=== PATIENT | female | born 1995 | race African-American/Black ===

== ENCOUNTER 2021-02-10 03:30 | Inpatient (IN) | payer OTHER ==
[2021-02-10] MEDS ORDERED: DEXTROSE 5%-LACTATED RINGERS 1,000 ML IV SCH (05:00)
[2021-02-10 05:39] VITALS: BMI 37.5
[2021-02-10 05:54] LABS: BASO % 0.9 % (0-2.0); EOS % 0.7 % (0-4.5); HEMATOCRIT 32.8 % (32.4-45.2); HEMOGLOBIN 11.1 GM/dL (10.7-15.3); LYMPH % 25.3 % (8-40); MCH 28.6 pg (25.7-33.7); MCHC 33.8 g/dl (32.0-36.0); MEAN CELL VOLUME 84.7 fl (80-96); MEAN PLT VOLUME 8.7 fl (7.5-11.1); NEUT % 69.1 % (42.8-82.8); PLATELET COUNT 204 10^3/uL (134-434); RBC 3.87 M/mm3 (3.60-5.2); RDW 15.2 % (11.6-15.6); WHITE BLOOD COUNT 6.1 K/mm3 (4.0-10.0)
[2021-02-10 06:04] LABS: INR 0.92 (0.83-1.09); PROTHROMBIN TIME (PATIENT) 11.3 SEC (9.7-13.0)
[2021-02-10 06:06] LABS: ACTIVATED PTT 30.6 SECONDS (25.2-36.5)
[2021-02-10 06:13] LABS: BLOOD UREA NITROGEN 5.8 mg/dL (7-18)
[2021-02-10 06:16] LABS: CREATININE 0.6 mg/dL (0.55-1.3)
[2021-02-10] MEDS: ELECTROLYTE-148 SOLN 1,000 ML IV SCH (07:15)
[2021-02-10] MEDS ORDERED: CITRIC ACID/SODIUM CITRATE 30 ML UNIT-DOSE CUP PO ONE (07:27)
[2021-02-10] MEDS ORDERED: ELECTROLYTE-148 SOLN 500 ML IV ONE (07:27)
[2021-02-10] MEDS ORDERED: OXYTOCIN 20 UNITS in 0.9% NS 20 UNIT/1,000 ML INFUS.BAG IV ONE ×2 (07:33→09:39)
[2021-02-10] MEDS ORDERED: KETOROLAC TROMETHAMINE 30 MG/1 ML VIAL ONE (07:34)
[2021-02-10] MEDS ORDERED: ONDANSETRON 4 MG/2 ML VIAL ONE (07:34)
[2021-02-10] MEDS ORDERED: PHENYLEPHRINE HCL 10 MG/1 ML SINGLE DOSE VIAL ONE (07:34)
[2021-02-10] MEDS ORDERED: morphine SULFATE (PF) 1 MG/2 ML SYRINGE ONE (07:34)
[2021-02-10] MEDS ORDERED: ceFAZolin SODIUM 1 GM VIAL ONE (07:35)
[2021-02-10] MEDS ORDERED: ACETAMINOPHEN 325 MG TABLET (FP) PO PRN (07:38)
[2021-02-10] MEDS ORDERED: METHYLERGONOVINE MALEATE 0.2 MG/1 ML AMP IM PRN (07:38)
[2021-02-10] MEDS ORDERED: oxyCODONE HCL 5 MG TABLET PO PRN (07:38)
[2021-02-10] MEDS ORDERED: IBUPROFEN 800 MG/8 ML IJ IVPB PRN (07:38)
[2021-02-10] MEDS ORDERED: ONDANSETRON 4 MG/2 ML VIAL IVPUSH PRN (08:13)
[2021-02-10] MEDS ORDERED: ACETAMINOPHEN 1000 MG/100 ML VIAL (NON FORMULARY) IVPB PRN (08:14)
[2021-02-10] MEDS: OXYTOCIN 20 UNITS in 0.9% NS 20 UNIT/1,000 ML INFUS.BAG IV SCH (09:45)
[2021-02-10] MEDS: PRENATAL VITAMINS W/ FOLIC ACID TABLET (FP) PO SCH (10:45)
[2021-02-10 11:04] LABS: HIV INTERPRETATION NEGATIVE (NEGATIVE)
[2021-02-11] MEDS: IBUPROFEN 600 MG TABLET (FP) PO PRN ×3 (05:23→19:50)
[2021-02-11 07:12] LABS: BASO % 0.5 % (0-2.0); EOS % 0.4 % (0-4.5); HEMATOCRIT 27.3 % (32.4-45.2); HEMOGLOBIN 9.3 GM/dL (10.7-15.3); LYMPH % 13.1 % (8-40); MCHC 34.2 g/dl (32.0-36.0); MEAN CELL VOLUME 84.9 fl (80-96); MEAN PLT VOLUME 8.2 fl (7.5-11.1); MONO % 8.6 % (3.8-10.2); NEUT % 77.4 % (42.8-82.8); PLATELET COUNT 170 10^3/uL (134-434); RBC 3.22 M/mm3 (3.60-5.2); RDW 15.3 % (11.6-15.6); WHITE BLOOD COUNT 7.8 K/mm3 (4.0-10.0)
[2021-02-11] MEDS ORDERED: BISACODYL 10 MG SUPP.RECT RC PRN (07:38)
[2021-02-11] MEDS: PRENATAL VITAMINS W/ FOLIC ACID TABLET (FP) PO SCH (09:10)
[2021-02-11] MEDS: SIMETHICONE 80 MG TAB.CHEW (FP) PO PRN ×2 (09:10→19:50)
[2021-02-11] MEDS: oxyCODONE HCL 5 MG TABLET PO PRN (21:13)
[2021-02-11] MEDS: SENNOSIDES/DOCUSATE COMBO (SENNA PLUS) TABLET (UD) PO PRN (21:13)
[2021-02-12] MEDS: SIMETHICONE 80 MG TAB.CHEW (FP) PO PRN ×2 (07:21→18:39)
[2021-02-12] MEDS: IBUPROFEN 600 MG TABLET (FP) PO PRN ×2 (07:21→18:39)
[2021-02-12] MEDS: PRENATAL VITAMINS W/ FOLIC ACID TABLET (FP) PO SCH (09:52)
[2021-02-12] MEDS: oxyCODONE HCL 5 MG TABLET PO PRN (19:48)
[2021-02-12] MEDS: SENNOSIDES/DOCUSATE COMBO (SENNA PLUS) TABLET (UD) PO PRN (19:48)
[2021-02-13] MEDS: ELECTROLYTE-148 SOLN 1,000 ML IV SCH (07:50)
[2021-02-13] MEDS: OXYTOCIN 20 UNITS in 0.9% NS 20 UNIT/1,000 ML INFUS.BAG IV SCH (07:50)
[2021-02-13] MEDS: PRENATAL VITAMINS W/ FOLIC ACID TABLET (FP) PO SCH (09:20)
[2021-02-13] MEDS: SIMETHICONE 80 MG TAB.CHEW (FP) PO PRN (09:20)
[2021-02-13 10:08] VITALS: BP 105/68; PULSE 81; TEMP 98.5
[2021-02-13] MEDS: IBUPROFEN 600 MG TABLET (FP) PO PRN (13:45)
== END 2021-02-13 14:20 | disposition home or self-care (01) | DRG 540 ==
LOC: JDEL 03:30 → JLDR 05:00 → J3W 10:25
PROVIDERS: ADMIT Obstetrics & Gynecology; ATTEND Obstetrics & Gynecology
PROC: 10D00Z1 Extraction of Products of Conception, Low, Open Approach (ICD-10-PCS; principal; 2021-02-10)
PROC: 10907ZC Drainage of Amniotic Fluid, Therapeutic from Products of Conception, Via Natural or Artificial Opening (ICD-10-PCS; 2021-02-10)
DX: O76 Abnormality in fetal heart rate and rhythm complicating labor and delivery (principal); O32.4XX0 Maternal care for high head at term, not applicable or unspecified; O77.0 Labor and delivery complicated by meconium in amniotic fluid; Z3A.39 39 weeks gestation of pregnancy; Z37.0 Single live birth
CPT/HCPCS: 36415; 80048; 85025; 85610; 85730; 86780; 86850; 86900; 86901; 87389; 88307-TC; C9803; U0003; U0005

== ENCOUNTER 2022-04-26 19:07 | Emergency (ER) | payer OTHER ==
[2022-04-26 19:56] VITALS: BMI 36.6
[2022-04-26 20:49] VITALS: BP 106/62; PULSE 108; RESP 18; TEMP 98.4
== END 2022-04-26 21:25 | disposition home or self-care (01) ==
LOC: JER 19:07
DX: O98.513 Other viral diseases complicating pregnancy, third trimester (principal); B34.9 Viral infection, unspecified; Z3A.34 34 weeks gestation of pregnancy
CPT/HCPCS: 0241U-QW; 99281-25

== ENCOUNTER 2022-05-31 06:06 | Inpatient (IN) | payer OTHER ==
[2022-05-31] MEDS ORDERED: CITRIC ACID/SODIUM CITRATE 30 ML UNIT-DOSE CUP PO ONE ×2 (06:30→08:10)
[2022-05-31] MEDS ORDERED: ELECTROLYTE-148 SOLN 500 ML IV SCH ×2 (06:30→07:00)
[2022-05-31 07:10] VITALS: BMI 36.6
[2022-05-31] MEDS ORDERED: IBUPROFEN 600 MG TABLET (FP) PO PRN (07:40)
[2022-05-31] MEDS ORDERED: ONDANSETRON 4 MG/2 ML VIAL IVPUSH PRN (07:40)
[2022-05-31] MEDS ORDERED: ACETAMINOPHEN 325 MG TABLET (FP) PO PRN ×2 (07:40→09:55)
[2022-05-31] MEDS ORDERED: morphine SULFATE/PF 1 MG/2 ML (2cc Syringe - QUVA) EP ONE (07:40)
[2022-05-31] MEDS ORDERED: morphine SULFATE (PF) 1 MG/2 ML SYRINGE ONE (07:46)
[2022-05-31] MEDS ORDERED: ceFAZolin SODIUM 1 GM VIAL ONE (07:47)
[2022-05-31] MEDS ORDERED: SODIUM CHLORIDE 0.9% P/F 10 ML VIAL IJ ONE (07:47)
[2022-05-31] MEDS ORDERED: ELECTROLYTE-148 SOLN 500 ML IV ONE (08:10)
[2022-05-31] MEDS ORDERED: ELECTROLYTE-148 SOLN 1,000 ML IV SCH (08:15)
[2022-05-31] MEDS ORDERED: PHENYLEPHRINE HCL 10 MG/1 ML SINGLE DOSE VIAL ONE (08:28)
[2022-05-31] MEDS ORDERED: OXYTOCIN 10 UNITS/ML VIAL ONE ×2 (08:40→09:27)
[2022-05-31] MEDS ORDERED: FENTANYL CITRATE/PF 50 MCG/ML VIAL ONE ×4 (08:51→09:31)
[2022-05-31] MEDS ORDERED: MIDAZOLAM HCL 2 MG/2 ML SINGLE DOSE VIAL ONE (08:54)
[2022-05-31] MEDS: OXYTOCIN 20 UNITS in 0.9% NS 20 UNIT/1,000 ML INFUS.BAG IV SCH ×2 (09:45→18:05)
[2022-05-31] MEDS ORDERED: METHYLERGONOVINE MALEATE 0.2 MG/1 ML AMP IM PRN (09:55)
[2022-05-31] MEDS ORDERED: IBUPROFEN 800 MG/8 ML IJ IVPB PRN (09:55)
[2022-05-31] MEDS ORDERED: SENNOSIDES/DOCUSATE COMBO (SENNA PLUS) TABLET (UD) PO PRN (09:55)
[2022-05-31] MEDS: PRENATAL VITAMINS W/ FOLIC ACID TABLET (FP) PO SCH (11:01)
[2022-05-31] MEDS: FERROUS SO4 325 MG TABLET (FP) PO SCH (16:59)
[2022-05-31] MEDS ORDERED: oxyCODONE HCL 5 MG TABLET PO PRN (21:55)
[2022-05-31] MEDS: SIMETHICONE 80 MG TAB.CHEW (FP) PO PRN (23:36)
[2022-06-01] MEDS: SIMETHICONE 80 MG TAB.CHEW (FP) PO PRN ×3 (03:16→23:03)
[2022-06-01] MEDS: IBUPROFEN 600 MG TABLET (FP) PO PRN ×3 (08:10→22:59)
[2022-06-01] MEDS: FERROUS SO4 325 MG TABLET (FP) PO SCH ×2 (08:10→16:46)
[2022-06-01] MEDS: PRENATAL VITAMINS W/ FOLIC ACID TABLET (FP) PO SCH (09:08)
[2022-06-01 09:53] LABS: BASO % 0.4 % (0-2.0); EOS % 0.7 % (0-4.5); HEMATOCRIT 28.5 % (32.4-45.2); HEMOGLOBIN 9.6 GM/dL (10.7-15.3); LYMPH % 14.7 % (8-40); MCHC 33.6 g/dl (32.0-36.0); MEAN CELL VOLUME 86.5 fl (80-96); MEAN PLT VOLUME 8.6 fl (7.5-11.1); MONO % 9.7 % (3.8-10.2); NEUT % 74.5 % (42.8-82.8); PLATELET COUNT 198 10^3/uL (134-434); RDW 15.1 % (11.6-15.6); WHITE BLOOD COUNT 9.1 K/mm3 (4.0-10.0)
[2022-06-01] MEDS ORDERED: BISACODYL 10 MG SUPP.RECT RC PRN (09:55)
[2022-06-02] MEDS: oxyCODONE HCL 5 MG TABLET PO PRN (01:49)
[2022-06-02] MEDS: FERROUS SO4 325 MG TABLET (FP) PO SCH ×2 (08:33→18:18)
[2022-06-02] MEDS: PRENATAL VITAMINS W/ FOLIC ACID TABLET (FP) PO SCH (10:33)
[2022-06-02] MEDS: SIMETHICONE 80 MG TAB.CHEW (FP) PO PRN (14:02)
[2022-06-02] MEDS: IBUPROFEN 600 MG TABLET (FP) PO PRN (16:56)
[2022-06-03] MEDS: SIMETHICONE 80 MG TAB.CHEW (FP) PO PRN (01:01)
[2022-06-03] MEDS: oxyCODONE HCL 5 MG TABLET PO PRN (01:02)
[2022-06-03] MEDS: PRENATAL VITAMINS W/ FOLIC ACID TABLET (FP) PO SCH (09:41)
[2022-06-03] MEDS: FERROUS SO4 325 MG TABLET (FP) PO SCH (09:41)
[2022-06-03 15:03] VITALS: BP 106/58; PULSE 96; RESP 16; TEMP 98.2
== END 2022-06-03 15:25 | disposition home or self-care (01) | DRG 540 ==
LOC: JLDR 06:06 → J3W 10:30
PROVIDERS: ADMIT Obstetrics & Gynecology; ATTEND Obstetrics & Gynecology
PROC: 10D00Z1 Extraction of Products of Conception, Low, Open Approach (ICD-10-PCS; principal; 2022-05-31)
PROC: 0DNW0ZZ Release Peritoneum, Open Approach (ICD-10-PCS; 2022-05-31)
DX: O34.219 Maternal care for unspecified type scar from previous cesarean delivery (principal); Z3A.39 39 weeks gestation of pregnancy; Z37.0 Single live birth
CPT/HCPCS: 36415; 85025; 88307-TC